=== PATIENT | female | born 1935 | race Asian ===

== ENCOUNTER → 2017-04-02 | Outpatient (CLI) | payer OTHER ==
[~2017-04-02] MED LIST: BENZ-26 PO; FLUC100T PO; PAIN MED
== END | disposition home or self-care (01) ==
LOC: RADPV 10:02
PROVIDERS: ATTEND Family Medicine
DX: M85.88 Other specified disorders of bone density and structure, other site (principal); M16.0 Bilateral primary osteoarthritis of hip; M76.891 Other specified enthesopathies of right lower limb, excluding foot; M19.072 Primary osteoarthritis, left ankle and foot; M19.071 Primary osteoarthritis, right ankle and foot; M77.32 Calcaneal spur, left foot; M77.31 Calcaneal spur, right foot; M85.872 Other specified disorders of bone density and structure, left ankle and foot; M85.871 Other specified disorders of bone density and structure, right ankle and foot; M19.042 Primary osteoarthritis, left hand; M19.041 Primary osteoarthritis, right hand; M85.842 Other specified disorders of bone density and structure, left hand; M85.841 Other specified disorders of bone density and structure, right hand; M25.552 Pain in left hip; M54.5 Low back pain; M41.86 Other forms of scoliosis, lumbar region; M47.816 Spondylosis without myelopathy or radiculopathy, lumbar region; M47.817 Spondylosis without myelopathy or radiculopathy, lumbosacral region; R04.2 Hemoptysis; R91.8 Other nonspecific abnormal finding of lung field; I70.0 Atherosclerosis of aorta; M47.814 Spondylosis without myelopathy or radiculopathy, thoracic region
CPT/HCPCS: 71020; 72100; 73521

== ENCOUNTER → 2017-04-22 | Outpatient (CLI) | payer OTHER | END | disposition home or self-care (01) | LOC: RADMN 12:47 | PROVIDERS: ATTEND Family Medicine | DX: I65.29 Occlusion and stenosis of unspecified carotid artery (principal); G93.89 Other specified disorders of brain; M48.00 Spinal stenosis, site unspecified; Z96.1 Presence of intraocular lens | CPT/HCPCS: 70450 ==

== ENCOUNTER → 2017-04-29 | Outpatient (CLI) | payer OTHER ==
[~2017-04-29] MED LIST changes: +ANTIBIOTIC; +[UNRECOGNIZED DRUG - REMARK]
== END | disposition home or self-care (01) ==
LOC: RADPV 12:11
PROVIDERS: ATTEND Family Medicine
DX: J18.9 Pneumonia, unspecified organism (principal); I70.0 Atherosclerosis of aorta; M47.814 Spondylosis without myelopathy or radiculopathy, thoracic region
CPT/HCPCS: 71020

== ENCOUNTER → 2017-10-01 | Outpatient (CLI) | payer OTHER ==
[~2017-10-01] MED LIST changes: -ANTIBIOTIC; -BENZ-26 PO; +BENZ-51 PO; -[UNRECOGNIZED DRUG - REMARK]
== END | disposition home or self-care (01) ==
LOC: RADMN 08:54
PROVIDERS: ATTEND Family Medicine
DX: H27.03 Aphakia, bilateral (principal); R90.82 White matter disease, unspecified; I65.23 Occlusion and stenosis of bilateral carotid arteries; R91.8 Other nonspecific abnormal finding of lung field; I70.0 Atherosclerosis of aorta; M47.814 Spondylosis without myelopathy or radiculopathy, thoracic region
CPT/HCPCS: 70450; 71020

== ENCOUNTER → 2018-06-10 | Outpatient (CLI) | payer MEDICARE, OTHER ==
[2018-06-10 16:05] LABS: BASOPHILS % (AUTO) 0.5 % (0.0-2.0); EOSINOPHILS % (AUTO) 2.1 % (1.0-6.0); HEMATOCRIT 39.2 % (36-46); HEMOGLOBIN 13.1 g/dL (12.0-16.0); LYMPHOCYTES # (AUTO) 2.8 K/uL (1.0-4.8); LYMPHOCYTES % (AUTO) 34.8 % (22.0-44.0); MEAN CORPUSCULAR HEMOGLOBIN 30.6 pg (26.0-34.0); MEAN CORPUSCULAR HGB CONC 33.5 G/dL (31.0-37.0); MEAN CORPUSCULAR VOLUME 91 fL (80-100); MONOCYTES # (AUTO) 0.8 K/uL (0.1-1.0); MONOCYTES % (AUTO) 9.6 % (2.0-9.0); NEUTROPHILS # (AUTO) 4.3 K/uL (1.8-7.7); PLATELET COUNT (AUTO) 192 K/uL (150-450); RED CELL DISTRIBUTION WIDTH 13.2 % (11.5-14.5)
[2018-06-10 16:07] LABS: ANION GAP 9 mmol/L (8-16); CALCIUM, TOTAL 8.9 mg/dL (8.8-10.5); CARBON DIOXIDE 26 mmol/L (22-29); CHLORIDE 107 mmol/L (98-107); CREATININE 0.78 mg/dL (0.60-1.30); GLUCOSE,RANDOM 125 mg/dL (70-110); SODIUM SERUM 142 mmol/L (136-145); UREA NITROGEN, BLOOD 17 mg/dL (7-18)
[2018-06-10 16:08] LABS: GLOMERULAR FILTR. RATE CALC > 60 mL/min (>60)
[2018-06-10 16:15] LABS: PROTHROMBIN TIME 10.5 SEC (9.4-11.6)
== END | disposition home or self-care (01) ==
LOC: MSR 12:31
PROVIDERS: ATTEND Family Medicine
DX: J98.4 Other disorders of lung (principal); I70.0 Atherosclerosis of aorta; R91.8 Other nonspecific abnormal finding of lung field; J32.3 Chronic sphenoidal sinusitis; I10 Essential (primary) hypertension

== ENCOUNTER → 2018-09-04 | Outpatient (CLI) | payer MEDICARE, OTHER | END | disposition home or self-care (01) | LOC: RADPV 10:44 | PROVIDERS: ATTEND Family Medicine | DX: D25.9 Leiomyoma of uterus, unspecified (principal) | CPT/HCPCS: 76856 ==

== ENCOUNTER 2018-10-23 22:38 | Emergency (ER) | payer MEDICARE ==
[~2018-10-23] VITALS: Ht 149.9 cm; Wt 64.5 kg
[2018-10-23] MEDS ORDERED: LOSA50TA64 PO (22:52)
[2018-10-23] MEDS ORDERED: CARV12 PO (22:52)
[2018-10-23] MEDS ORDERED: RANO500T3 PO (22:52)
[2018-10-23 23:28] LABS: BASOPHILS % (AUTO) 0.4 % (0.0-2.0); EOSINOPHILS % (AUTO) 4.2 % (1.0-6.0); HEMATOCRIT 40.5 % (36-46); HEMOGLOBIN 13.5 g/dL (12.0-16.0); LYMPHOCYTES # (AUTO) 2.7 K/uL (1.0-4.8); LYMPHOCYTES % (AUTO) 40.5 % (22.0-44.0); MEAN CORPUSCULAR HEMOGLOBIN 31.1 pg (26.0-34.0); MEAN CORPUSCULAR HGB CONC 33.4 G/dL (31.0-37.0); MEAN CORPUSCULAR VOLUME 93 fL (80-100); MONOCYTES # (AUTO) 0.7 K/uL (0.1-1.0); MONOCYTES % (AUTO) 10.3 % (2.0-9.0); NEUTROPHILS # (AUTO) 2.9 K/uL (1.8-7.7); NEUTROPHILS % (AUTO) 44.6 % (40.0-70.0); PLATELET COUNT (AUTO) 202 K/uL (150-450); RED BLOOD CELL COUNT(AUTO) 4.35 MIL/uL (4.00-5.20); RED CELL DISTRIBUTION WIDTH 14.5 % (11.5-14.5)
[2018-10-23 23:38] LABS: CALCIUM, TOTAL 9.1 mg/dL (8.8-10.5); CREATININE 1.03 mg/dL (0.60-1.30)
[2018-10-23 23:44] LABS: ALBUMIN 3.6 g/dL (3.4-5.0); BILIRUBIN,TOTAL 0.4 mg/dL (0.1-1.0); TOTAL PROTEIN, SERUM 7.8 g/dL (6.4-8.2)
[2018-10-24] MEDS ORDERED: ACETAMINOPHEN 500 MG TABLET PO ONE (03:00)
[2018-10-24] MEDS ORDERED: IBUPROFEN 600 MG TABLET PO ONE (03:00)
[2018-10-24] MEDS ORDERED: ONDANSETRON HCL 4 MG TABLET PO ONE (03:15)
[2018-10-24 04:35] VITALS: BP 141/71
== END 2018-10-24 06:01 | disposition home or self-care (01) ==
LOC: EMS 22:41
DX: I10 Essential (primary) hypertension (principal); M54.2 Cervicalgia
CPT/HCPCS: 36415; 70450; 72125; 80053; 84484; 85025; 99284; Q0162

== ENCOUNTER → 2021-01-30 | Outpatient (CLI) | payer MEDICARE, MEDICAID ==
[~2021-01-30] MED LIST changes: -BENZ-51 PO; +CARV12 PO; -FLUC100T PO; +LOSA50TA37 PO; -PAIN MED; +RANO500T3 PO
== END | disposition home or self-care (01) ==
LOC: RADPV 08:55
PROVIDERS: ATTEND Family Medicine
DX: I67.82 Cerebral ischemia (principal); I67.2 Cerebral atherosclerosis; G31.9 Degenerative disease of nervous system, unspecified; D25.9 Leiomyoma of uterus, unspecified; N26.1 Atrophy of kidney (terminal); N28.1 Cyst of kidney, acquired
CPT/HCPCS: 70450; 76700; 76830; 76856

== ENCOUNTER → 2021-07-03 | Outpatient (CLI) | payer MEDICARE, MEDICAID, OTHER | END | disposition home or self-care (01) | LOC: RADMN 14:04 | PROVIDERS: ATTEND Family Medicine | DX: M19.012 Primary osteoarthritis, left shoulder (principal); M19.011 Primary osteoarthritis, right shoulder; M85.88 Other specified disorders of bone density and structure, other site; M16.12 Unilateral primary osteoarthritis, left hip; M16.11 Unilateral primary osteoarthritis, right hip | CPT/HCPCS: 73521; 73030-TC ==

== ENCOUNTER → 2021-08-18 | Outpatient (CLI) | payer MEDICARE, MEDICAID | END | disposition home or self-care (01) | LOC: RADMN 12:50 | PROVIDERS: ATTEND Internal Medicine Pulmonary Disease | DX: J92.9 Pleural plaque without asbestos (principal); E04.8 Other specified nontoxic goiter; J98.11 Atelectasis; K44.9 Diaphragmatic hernia without obstruction or gangrene; I70.0 Atherosclerosis of aorta; M25.78 Osteophyte, vertebrae; R91.8 Other nonspecific abnormal finding of lung field; J84.9 Interstitial pulmonary disease, unspecified; R09.89 Other specified symptoms and signs involving the circulatory and respiratory systems | CPT/HCPCS: 71250 ==

== ENCOUNTER → 2022-07-18 | Outpatient (CLI) | payer MEDICARE, MEDICAID, OTHER ==
[~2022-07-18] MED LIST changes: +LOSA-382 PO; -LOSA50TA37 PO
== END | disposition home or self-care (01) ==
LOC: RADMN 12:29
PROVIDERS: ATTEND Internal Medicine Pulmonary Disease
DX: R91.8 Other nonspecific abnormal finding of lung field (principal); E04.2 Nontoxic multinodular goiter; K44.9 Diaphragmatic hernia without obstruction or gangrene; K86.89 Other specified diseases of pancreas; K86.1 Other chronic pancreatitis; I25.10 Atherosclerotic heart disease of native coronary artery without angina pectoris; I70.0 Atherosclerosis of aorta
CPT/HCPCS: 71250

== ENCOUNTER → 2023-01-03 | Outpatient (CLI) | payer MEDICARE, OTHER, MEDICAID ==
[~2023-01-03] MED LIST changes: +RANO500T27 PO; -RANO500T3 PO
== END | disposition home or self-care (01) ==
LOC: RADMN 10:54
PROVIDERS: ATTEND Family Medicine
DX: S09.90XA Unspecified injury of head, initial encounter (principal); M85.89 Other specified disorders of bone density and structure, multiple sites; M79.89 Other specified soft tissue disorders; M19.041 Primary osteoarthritis, right hand; M17.11 Unilateral primary osteoarthritis, right knee; M19.011 Primary osteoarthritis, right shoulder
CPT/HCPCS: 70260; 73502